=== PATIENT | female | born 1960 | race Caucasian/White ===

== ENCOUNTER 2022-09-13 06:00 | Outpatient (RCR) | payer MEDICARE, OTHER, MEDICAID, SELFPAY | END 2022-11-14 10:16 | disposition home or self-care (01) | LOC: PT 06:00 | PROVIDERS: PCP Specialist; Visit Provider Specialist | DX: M70.62 Trochanteric bursitis, left hip (principal); M25.552 Pain in left hip; R53.1 Weakness | CPT/HCPCS: 97110; 97112; 97113; 97140; 97162 ==

== ENCOUNTER 2022-11-07 12:15 | Outpatient (OUT) | payer OTHER, MEDICAID, SELFPAY ==
[2022-11-07 14:07] LABS: Free T4 0.81 ng/dL (0.76-1.46)
[2022-11-07 14:13] LABS: Free T3 3.46 pg/mL (2.18-3.98); Thyroid Stimulating Hormone 0.017 uIU/mL (0.358-3.740)
[2022-11-08 04:07] LABS: Thyroid Peroxidase (TPO) Ab 10 IU/mL (0-34); Triiodothyronine (T3) 162 ng/dL (71-180)
[2022-11-08 14:11] LABS: Thyroglobulin Antibody <1.0 IU/mL (0.0-0.9)
== END 2022-11-07 12:16 | disposition home or self-care (01) ==
PROVIDERS: PCP Family Medicine; Visit Provider Family Medicine
DX: E03.9 Hypothyroidism, unspecified (principal); G93.32 Myalgic encephalomyelitis/chronic fatigue syndrome
CPT/HCPCS: 36415; 84439; 84443; 84480; 84481; 84482; 86376; 86800